=== PATIENT | male | born 1990 | race Caucasian/White ===

== ENCOUNTER 2020-10-30 01:08 | Emergency (ER) | payer BC, OTHER ==
[~2020-10-30] VITALS: Ht 175.3 cm; Wt 90.7 kg
[~2020-10-30 01:08] MED LIST: CRUTCH USE; HYDACE5 PO; IBUP800
[2020-10-30] MEDS ORDERED: AMOCLA875 PO (02:53)
== END 2020-10-30 03:25 | disposition home or self-care (01) ==
LOC: ER 01:08
DX: S61.237A Puncture wound without foreign body of left little finger without damage to nail, initial encounter (principal); Z23 Encounter for immunization; Z88.1 Allergy status to other antibiotic agents; W29.4XXA Contact with nail gun, initial encounter
CPT/HCPCS: 73130; 90471; 90714; 99283-25; A9270

== ENCOUNTER 2021-07-10 19:25 | Inpatient (IN) | payer BC, OTHER ==
[~2021-07-10] VITALS: Ht 172.7 cm; Wt 95.2 kg
[~2021-07-10 19:25] MED LIST changes: +AMOCLA875 PO
[2021-07-10 21:08] LABS: BASOPHILS ABSOLUTE AUTO 0.04 K/mm3 (0.00-0.23); BASOPHILS PERCENT AUTO 0 % (0-2); EOSINOPHILS PERCENT AUTO 0 % (0-6); Hematocrit 43.7 % (37.0-53.0); Hemoglobin 15.7 g/dL (13.5-17.5); IMMATURE GRAN ABSOLUTE AUTO 0.03 K/mm3 (0.00-0.10); IMMATURE GRAN PERCENT AUTO 0 % (0-1); LYMPHOCYTES ABSOLUTE AUTO 1.89 K/mm3 (0.84-5.20); LYMPHOCYTES PERCENT AUTO 18 % (21-46); MONOCYTES ABSOLUTE AUTO 0.71 K/mm3 (0.16-1.47); MONOCYTES PERCENT AUTO 7 % (4-13); Mean Corpuscular HGB 30.4 pg (26.0-34.0); Mean Corpuscular HGB Conc 35.9 g/dL (31.5-36.5); Mean Corpuscular Volume 85 fL (80-100); Mean Platelet Volume 10.6 fL (9.1-12.4); NEUTROPHILS ABSOLUTE AUTO 7.79 K/mm3 (1.96-9.15); NEUTROPHILS PERCENT AUTO 74 % (41-73); Platelet Count 236 K/mm3 (150-400); RDW Coefficient Variation 12.4 % (11.7-14.2); RDW Standard Deviation 38.1 fL (35.1-46.3); Red Blood Cell Count 5.17 M/mm3 (4.30-5.90); White Blood Cell Count 10.46 K/mm3 (4.00-11.30)
[2021-07-10 21:26] LABS: Alanine Aminotransfer (ALT/SGP 51 U/L (12-78); Albumin, Blood 4.4 g/dL (3.4-5.0); Albumin/Globulin Ratio 1.2 (0.8-1.8); Alk Phos 93 U/L (50-136); Anion Gap 8 mmol/L (6-16); Aspartate Aminotrans (AST/SGOT 42 U/L (12-37); Bilirubin, Total 0.4 mg/dL (0.1-1.0); Blood Urea Nitrogen 14 mg/dL (8-24); Bun/Creatinine Ratio 13.5 (12.0-20.0); CO2, Blood 24 mmol/L (21-32); CPK Creatine Kinase 956 U/L (39-308); Calcium, Blood 8.9 mg/dL (8.5-10.1); Chloride, Blood 110 mmol/L (98-108); Creatinine, Blood 1.04 mg/dL (0.60-1.20); Globulin, Blood 3.6 g/dL (2.2-4.0); Glomerular Filtration Rate >60 (60-); Glucose, Blood 94 mg/dL (70-99); Potassium, Blood 4.4 mmol/L (3.5-5.5); Sodium, Blood 142 mmol/L (136-145)
[2021-07-10 21:46] LABS: Creatine Kinase MB 4.2 ng/mL (0.0-3.6); Creatine Kinase MB Index 0.4 (0.0-4.0)
[2021-07-11 00:54] LABS: Influenza A, PCR NEGATIVE (NEGATIVE); Influenza B, PCR NEGATIVE (NEGATIVE); Resp Syncytial Virus, PCR NEGATIVE (NEGATIVE); SARS-Cov-2 (COVID-19) PCR, MMC NEGATIVE (NEGATIVE)
--- NOTE | 2021-07-11 05:53 | NUR ---
SLEPT WELL THROUGH NIGHT. COMPLAINED OF VERY MILD DISCOMFORT TO LLE, REFUSED ANY NEED FOR PAIN MEDICATON. NO ACUTE DISTRESS NOTED, RESPIRATIONS EVEN AND UNLABORED. DRESSING CLEAN DRY AND INTACT TO LLE, ELEVATED ON PILLOWS. ABLE TO WIGGLE TOES, CAP REFILL LESS THAN 2 SECONDS, DENIES NUMBESS/TINGLING. SAFETY MAINTAINTED, CALL ARIZMENDI IN REACH.
--- NOTE | 2021-07-11 15:29 | NUR ---
POST OP PATIENT BROUGHT BACK TO ROOM POST OP ORIF LEFT TIB/FIB WITH PLATE AND SCREWS. WAKES EASILY BUT REMAINS DROWSY. RATES PAIN 8/10. ABLE TO WIGGLE TOES, AND REPORTS SENSATION IN TOES. WARM TO TOUCH WITH CAP REFILL LESS THAN 3 SECONDS. TOLERATING SIPS OF WATER AND CRACKERS. MEDICATED FOR PAIN. IV FLUID RUNNING.
--- NOTE | 2021-07-11 17:56 | NUR ---
SHIFT SUMMARY PATIENT ALERT AND ORIENTED WHEN AWAKE. WENT FOR ORIF OF LEFT TIB/FIB FX. PLATE WITH SCREWS PLACED. ON RETURN FROM PACU LLE IN GAUZE AND ESTEFANY WRAP. ABLE TO WIGGLE TOES AND REPORTS SENSATION TO FOOT AND KNEE. PAIN IS SEVERE. ALTERNATING PO PAIN PILLS WITH IV DILAUDID. TOLERATING REGULAR DIET AND LIQUIDS. O2 WEANED, SATS ABOVE 90% ON RA. RESTING IN BED AT THIS TIME.
--- NOTE | 2021-07-12 05:11 | NUR ---
SHIFT SUMMARY POD1 ORIF ON LLE. LLE WRAPPED WITH ESTEFANY WRAPPED ELEVATED. NOTED SOME SWELLING. ICE IN PLACED. PT REPORTS CONSTANT PAIN 7-9/10. PAIN MANAGED WITH DILAUDID 1MG AND 10MG PERCOCET. PT TOLERATING PO INTAKE, REPORTS MILD NAUSEA X1 AT THE BEGINNING OF SHIFT BUT RESOLVED AFTER ZOFRAN IV WAS ADMINSTERED. DENIES VOMITING. VSS. PT REPORT TOP L FOOT FEELS SOME MILD NUMBNESS BUT ABLE TO WIGGLE TOES, MOVE ALL EXTREMITIES. CAP REFILL WNL. VOIDING AT THE SIDE OF BED WITH URINAL. ABLE TO STAND AND USE FWW. PLAN: PT WILL WORK WITH THERAPY TODAY AND POSSIBLE DISCHARGE. CALL LIGHT WITHIN REACH. WILL PROVIDE REPORT TO ONCOMING NURSE.
--- NOTE | 2021-07-12 14:52 | NUR ---
07/12/21 1452 Joanna Ma VERIFICATIONS: EDIT CHART.
[2021-07-12] MEDS ORDERED: Percocet 5-3251 EACH PO (16:19)
--- NOTE | 2021-07-12 16:28 | NUR ---
SHIFT SUMMARY PT A&OX4, VSS/RA. POD1 L ORIF/AQUACEL, NWB, ELEVATED ON PILLOWS. AMBULATE WITH FWW/GB TO BRP, UP TO CHAIR. PAIN MANAGED WITH 10 MG PERC. VOIDING WELL. KENDELL PO. WILL REPORT TO ONCOMING NOC RN.
--- NOTE | 2021-07-12 17:06 | NUR ---
DISCHARGE SUMMARY PT WORKED WITH PHYSICAL THERAPY A SECOND TIME TODAY AND WAS ABLE TO DO STAIRS AND MANAGE CRUTCHES AND HAS DECIDED HE WOULD LIKE TO GO HOME. PT REP BOUGHT CRUTCHES AT [facility] AND IS WAITING TO PICK HIM UP. DC INSTRUCTIONS PROVIDED. PT REP UNDERSTANDING THOSE INSTRUCTIONS, DRESSING CHANGES, NWB, ALL AMBULATION WITH CRUTCHES, FU APPT. PT LEFT FLOOR VIA WC WITH SN, WITH DC PACKET, AQUACEL DRESSINGS; PT REP NARC SCRIPT ALREADY FILLED AND AT HOME. IV DC'D.
== END 2021-07-12 17:00 | disposition home or self-care (01) | DRG 494 ==
LOC: ER 19:25 → SURS 22:32
PROVIDERS: Student in an Organized Health Care Education/Training Program; ADMIT Orthopaedic Surgery
PROC: 2W3MX1Z Immobilization of Left Lower Extremity using Splint (ICD-10-PCS; 2021-07-10)
PROC: 0S9D0ZX Drainage of Left Knee Joint, Open Approach, Diagnostic (ICD-10-PCS; 2021-07-11)
PROC: 0QSH04Z Reposition Left Tibia with Internal Fixation Device, Open Approach (ICD-10-PCS; principal; 2021-07-11 11:30)
DX: S82.202A Unspecified fracture of shaft of left tibia, initial encounter for closed fracture (principal); S82.402A Unspecified fracture of shaft of left fibula, initial encounter for closed fracture; Z20.822 Contact with and (suspected) exposure to COVID-19; M25.462 Effusion, left knee; F17.220 Nicotine dependence, chewing tobacco, uncomplicated; W20.8XXA Other cause of strike by thrown, projected or falling object, initial encounter; Z88.1 Allergy status to other antibiotic agents; Y93.H9 Activity, other involving exterior property and land maintenance, building and construction; Y92.828 Other wilderness area as the place of occurrence of the external cause
CPT/HCPCS: 0241U; 29505; 36415; 73590; 80053; 82550; 82553; 85025; 94760; 96374-59; 96375-59; 97110; 97116; 97161; 99284-25; A9270; C1713; J0690; J1100; J1170; J1885; J2250; J2270; J2405; J2704; J3010; J7042